=== PATIENT | male | born 1955 | race Caucasian/White ===

== ENCOUNTER 2017-10-14 16:03 | Emergency (ER) | payer SELFPAY ==
[2017-10-14] MEDS ORDERED: HYDROGEN PEROXIDE 3% ONE (16:15)
[2017-10-14] MEDS ORDERED: ADACEL TDaP IM ONE ×2 (16:17→16:29)
[2017-10-14 16:21] VITALS: BP 126/59; BMI 31.0
--- NOTE | 2017-10-14 16:37 | DR.LACERAT ---
HPI - Primary Care Physician Primary Care Physician: VIKTORIYA - Complaints Chief Complaint:: PT. HAS A 2 INCH LACERATION S/P SYNCOPAL EPISODE. PT. STATES HE BECAME VERY NAUSEATED PRIOR TO HIS SYNCOPAL EPISODE. DENIES PAIN AT TIME OF TRIAGE. LACERATION NOTED TO BACK OF PT'S HEAD. - Reviewed Nurses Notes Reviewed: Yes - Source History Provided: Patient, EMS - Mode of Arrival Mode of Arrival: EMS - Timing Onset of Chief Complaint: 10/14/17 PMH - PMH Past Medical History: Yes Past Medical History: Diabetes, Dyslipidemia, Hypertension, HI Past Surgical History: Yes Surgical History: Cholecystectomy - Family History History of Family Medical Conditions: No - Social History Does patient currently use any type of tobacco product: No Have you used tobacco products in the last 12 months: No Type of Tobacco Use: None Does any household member use tobacco: No Alcohol Use: None Do you use any recreational Drugs:: No Lives With: Family Lives Where: Home - infectious screening In the last 2 months have you had wt loss of >10#?: NO Have you had fever, night sweats or hemotysis?: No Have you traveled outside the country in the last 6 months?: No Isolation: Standard PE - Vital Signs Vitals: Temperature 97.6 F Pulse Rate 93 Respiratory Rate 17 Blood Pressure 126/59 O2 Sat by Pulse Oximetry 97 ROR - Labs Reviewed Result Diagrams: 10/14/17 16:23 10/14/17 16:23 Laboratory: WBC 8.1 X10^3/uL (3.6-10.0) 10/14/17 16:23 RBC 5.37 X10^6/uL (4.7-6.0) 10/14/17 16:23 Hgb 16.3 g/dL (13.5-18.0) 10/14/17 16:23 Hct 46.6 % (42.0-54.0) 10/14/17 16:23 MCV 86.8 fL (80.0-100.0) 10/14/17 16:23 MCH 30.3 pg (27.0-34.0) 10/14/17 16:23 MCHC 34.9 g/dL (33.0-35.0) 10/14/17 16:23 RDW 13.4 % (11.6-16.5) 10/14/17 16:23 Plt Count 215 X10^3/uL (150.0-450.0) 10/14/17 16:23 MPV 9.0 fL (7.4-11.0) 10/14/17 16:23 Neut % 76.1 % (42.0-75.0) H 10/14/17 16:23 Lymph % 9.7 % (21.0-51.0) L 10/14/17 16:23 [place] % 13.4 % (0.0-13.0) H 10/14/17 16:23 Eos % 0.3 % (0.9-2.9) L 10/14/17 16:23 Baso % 0.5 % (0.2-1.0) 10/14/17 16: Neut # 6.2 x10^3/uL (2.2-4.8) H 10/14/17 16:23 Lymph # 0.8 X10^3/uL (1.3-2.9) L 10/14/17 16:23 [place] # 1.1 x10^3/uL (0.3-0.8) H 10/14/17 16:23 Eos # 0.0 x10^3/uL (0.0-0.2) 10/14/17 16:23 Baso # 0.0 X10^3/uL (0.0-0.1) 10/14/17 16:23 Absolute Nucleated RBC 0.1 /100WBC 10/14/17 16:23 Sodium 140 mmol/L (136-145) 10/14/17 16:23 Corrected Sodium 142 mmol/L (136-145) 10/14/17 16:23 Potassium 4.2 mmol/L (3.5-5.1) 10/14/17 16:23 Chloride 102 mmol/L (98-107) 10/14/17 16:23 Carbon Dioxide 27.1 mmol/L (21-32) 10/14/17 16:23 BUN 16 mg/dL (7-18) 10/14/17 16:23 Creatinine 1.81 mg/dL (0.70-1.30) H 10/14/17 16:23 Est GFR (MDRD) Af Amer 49 (>60) L 10/14/17 16:23 Est GFR (MDRD) Non-Af 41 (>60) L 10/14/17 16:23 Glucose 175 mg/dL (65-99) H 10/14/17 16:23 Calcium 9.4 mg/dL (8.5-10.1) 10/14/17 16:23 Corrected Calcium TNP 10/14/17 16:23 Total Bilirubin 0.50 mg/dL (0.2-1.0) 10/14/17 16:23 AST 20 Units/L (15-37) 10/14/17 16:23 ALT 24 Units/L (12-78) 10/14/17 16:23 Alkaline Phosphatase 64 Units/L (46-116) 10/14/17 16:23 Creatine Kinase 77 Units/L (39-308) 10/14/17 16:23 CK-MB (CK-2) 1.1 ng/mL (0-4.0) 10/14/17 16:23 CK/CKMB % Calc 1.4 % (<4) 10/14/17 16:23 Troponin I < 0.02 ng/mL (0-1.5) 10/14/17 16:23 Total Protein 8.5 g/dL (6.4-8.2) H 10/14/17 16:23 Albumin 4.2 g/dL (3.4-5.0) 10/14/17 16:23 Globulin 4.3 g/dL (2.5-4.5) 10/14/17 16:23 Albumin/Globulin Ratio 1.0 Ratio (1.1-2.1) L 10/14/17 16:23 - Diagnosis Discharge Problem: Syncope Qualifiers: Syncope type: unspecified Qualified Code(s): R55 - Syncope and collapse Scalp laceration Qualifiers: Encounter type: initial encounter Qualified Code(s): S01.01XA - Laceration without foreign body of scalp, initial encounter - Discharge Plan Condition: Stable - Follow ups/Referrals Follow ups/Referrals: Erich Mclaughlin [Primary Care Provider] - 3 days - Instructions Instructions: Syncope, [id number], Laceration Care, Adult, [id number] Additional Instructions: RETURN TO ED IF WORSE. STAPLE OUT IN 10 DAYS.
[2017-10-14 16:42] LABS: BASOPHILS % (AUTO) 0.5 % (0.2-1.0); EOSINOPHILS % (AUTO) 0.3 % (0.9-2.9); HEMATOCRIT 46.6 % (42.0-54.0); HEMOGLOBIN 16.3 g/dL (13.5-18.0); LYMPHOCYTES # (AUTO) 0.8 X10^3/uL (1.3-2.9); LYMPHOCYTES % (AUTO) 9.7 % (21.0-51.0); MEAN CORPUSCULAR HEMOGLOBIN 30.3 pg (27.0-34.0); MEAN CORPUSCULAR HGB CONC 34.9 g/dL (33.0-35.0); MEAN CORPUSCULAR VOLUME 86.8 fL (80.0-100.0); MONOCYTES # (AUTO) 1.1 x10^3/uL (0.3-0.8); MONOCYTES % (AUTO) 13.4 % (0.0-13.0); NEUTROPHILS # (AUTO) 6.2 x10^3/uL (2.2-4.8); NEUTROPHILS % (AUTO) 76.1 % (42.0-75.0); PLATELET COUNT 215 X10^3/uL (150.0-450.0); RED BLOOD COUNT 5.37 X10^6/uL (4.7-6.0); RED CELL DISTRIBUTION WIDTH 13.4 % (11.6-16.5); WHITE BLOOD COUNT 8.1 X10^3/uL (3.6-10.0)
[2017-10-14] MEDS ORDERED: XYLOCAINE 1 % (PLAIN) ONE (16:59)
[2017-10-14 17:09] LABS: BLOOD UREA NITROGEN 16 mg/dL (7-18); CALCIUM 9.4 mg/dL (8.5-10.1); CARBON DIOXIDE 27.1 mmol/L (21-32); CHLORIDE 102 mmol/L (98-107); COR NA(FOR HYPERGLY) 142 mmol/L (136-145); CREATININE 1.81 mg/dL (0.70-1.30); SODIUM 140 mmol/L (136-145); TROPONIN I < 0.02 ng/mL (0-1.5); eGFR BLACK RACES 49 (>60); eGFR NON BLACK RACES 41 (>60)
[2017-10-14 17:12] LABS: ALANINE AMINOTRANSFERASE 24 Units/L (12-78); ALBUMIN 4.2 g/dL (3.4-5.0); ALKALINE PHOSPHATASE 64 Units/L (46-116); ASPARTATE AMINO TRANSFERASE 20 Units/L (15-37); CKMB % 1.4 % (<4); CREATINE KINASE 77 Units/L (39-308); CREATINE KINASE MB 1.1 ng/mL (0-4.0); TOTAL PROTEIN 8.5 g/dL (6.4-8.2)
--- NOTE | 2017-10-14 17:15 | CT ---
HISTORY: Headache status post fall. Study: CT brain without contrast Comparison: None. Technique: Multiple axial images of the brain were obtained from the skull base to the vertex without administra tion of IV contrast. Dose reduction techniques including Automated Exposure Control (AEC) and adjust ment of mA and kV were utilized. Findings: Age-related cortical atrophy and chronic small vessel ischemic changes. No acute intraparenchymal hem orrhage or mass can be identified. No extra-axial fluid collections are seen. No alteration in the attenuation of the brain parenchyma can be identified to suggest acute or subacute ischemic change. The ventricular system is symmetric and nondilated. The extracranial structures are grossly unremark able. IMPRESSION: No acute intracranial pathology. Reported By:
--- NOTE | 2017-10-14 17:19 | RAD ---
HISTORY: Shortness of breath Study: Single-view of the chest Comparison: None Findings: The cardiac silhouette is enlarged. Slight hilar prominence bilaterally may reflect underlying pulmon velma artery is. No evidence of focal consolidation is appreciated. If symptoms persist recommend cedric nued follow-up further evaluation. IMPRESSION: Cardiomegaly. Reported By:
== END 2017-10-14 18:43 | disposition home or self-care (01) ==
LOC: ER 16:21
PROC: 0WQ0XZZ Repair Head, External Approach (ICD-10-PCS; principal; 2017-10-14)
DX: S01.01XA Laceration without foreign body of scalp, initial encounter (principal); R55 Syncope and collapse; W45.8XXA Other foreign body or object entering through skin, initial encounter; Y92.9 Unspecified place or not applicable
CPT/HCPCS: 12001; 36415; 70450; 71045; 80053; 82550; 82553; 84484; 85025; 90471; 93005; 93010; 96365; 96372; 99282; 99283; J2001